=== PATIENT | female | born 1970 | race Caucasian/White ===

== ENCOUNTER → 2020-09-22 11:37 | Outpatient (CLI) | payer OTHER, SELFPAY ==
--- NOTE | ~2020-09-22 | US_ITS ---
EXAMINATION: US pelvic complete DATE: 09/22/2020 12:07 INDICATION: Material, generalized abdominal pain Comparison:01/08/2011 TECHNIQUE: Multiple transabdominal and endovaginal sonographic images of the pelvis performed. FINDINGS: The uterus measures 9.2 x 3.5 x 6.1 cm. The endometrial complex measures 7 mm. The right ovary measures 3.8 x 3.2 x 2.3 cm and the left ovary measures 3.8 x 2.3 x 2.5 cm. There ar e small follicles in each ovary. Normal doppler signal in both ovaries. There is no free fluid in the pelvis. There are no abnormal masses seen on either side. IMPRESSION: 1. Unremarkable pelvic ultrasound. Reviewed, dictated and finalized at location B.
== END ==
PROVIDERS: PCP Family Medicine; Visit Provider Family Medicine
DX: R31.9 Hematuria, unspecified (principal)
CPT/HCPCS: 76856

== ENCOUNTER → 2020-09-24 08:07 | Outpatient (CLI) | payer OTHER, SELFPAY ==
--- NOTE | ~2020-09-24 | US_ITS ---
US abdomen complete EXAMINATION: US Abdomen Complete INDICATION: Hematuria. Foamy urine. PROCEDURE: Realtime High Resolution abdomen ultrasound. COMPARISON: No prior studies for comparison FINDINGS: There are gallstones. No gallbladder wall thickening or pericholecystic fluid. Common bile duct measures 3 mm. Liver echotexture within normal limits without focal mass. Pancreas within normal limits. Pancreati c tail is obscured by bowel gas. Spleen is unremarkeable. Renal echotexture is within normal limits bilaterally without hydronephrosis, contour deforming mass or renal stone. Right kidney measures 12 c m. Left kidney measures 11.3 cm. Visualized aspects of the aorta and IVC are within normal limits. Portal vein is patent. No sonograph ic Tobar's sign indicated by the technologist. IMPRESSION: 1: Cholelithiasis. Reviewed, dictated and finalized at location B. IMPRESSION: 1: Cholelithiasis.
== END ==
PROVIDERS: PCP Family Medicine; Visit Provider Family Medicine
DX: R31.9 Hematuria, unspecified (principal); K80.20 Calculus of gallbladder without cholecystitis without obstruction
CPT/HCPCS: 76700

== ENCOUNTER → 2020-10-09 09:26 | Outpatient (CLI) | payer OTHER, SELFPAY ==
--- NOTE | ~2020-10-09 | CT_ITS ---
EXAMINATION: CT abdomen pelvis wo/w con EXAM DATE: 10/09/2020 10:13 INDICATION: Microscopic hematuria. TECHNIQUE: Spiral CT of the abdomen and pelvis was performed without contrast. The patient was then injected with small bolus intravenous Omnipaque 350, followed by delay of approximately 10 minutes to allow collecting system to opacify. A post contrast scan abdomen and pelvis was performed during inj ection of remaining contrast. A total of 130 cc intravenous contrast was administered. The dose-cristofer th product (DLP) for this examination was 1680.54 mGy-cm. The exposure was tailored according to pat ient size (auto mA exposure control), and iterative reconstruction (ASIR) was used as additional dose reduction technique. There is no prior study for comparison. FINDINGS: There is no hydronephrosis or nephrolithiasis. The kidneys enhance symmetrically. There a re no suspicious renal lesions. The calyces and opacified portions of ureters are unremarkable, with out filling defects or focal suspicious strictures. Mid and distal aspects of both ureters were not o pacified at time of imaging. The bladder is unremarkable. The uterus is retroverted with IUD in expe cted position. The liver, spleen, adrenal glands and pancreas are unremarkable. Some punctate gallstones. Gallbladd er otherwise unremarkable. There is no retroperitoneal or pelvic lymphadenopathy. Small umbilical fat-containing hernia. There is mild scattered colonic diverticulosis. There is no adjacent inflammatory change to suggest diverticulitis. The stomach and small bowel are unremarkable. There is expected amount of colonic st ool. No free intraperitoneal gas. The heart is normal in size. There are no pericardial or pleur al effusions. The lung bases are unremarkable. There are no osteoblastic or osteolytic lesions iden tified. IMPRESSION: 1. No suspicious genitourinary findings. 2. Mild colonic diverticulosis. 3. Cholelithiasis. Reviewed, dictated and finalized at location A.
--- NOTE | ~2020-10-09 | XR_ITS ---
EXAMINATION: XR abdomen/kub 1V EXAM DATE: 10/09/2020 10:13 INDICATION: Microscopic hematuria. TECHNIQUE: Frontal projection of the upper abdomen, frontal projection lower abdomen/pelvis for inter pretation. Comparison is made to prior examination from 08/22/2015. FINDINGS: There is moderate amount of colonic stool and gas. No small bowel dilation, nonobstructiv e bowel gas pattern. There are no suspicious calcifications identified. There is no organomegaly suspected. There are mild bony degenerative changes. Lung bases unremarkable. There is IUD projecti ng over the central aspect of the pelvis. IMPRESSION: No suspicious calcifications identified. Reviewed, dictated and finalized at location A.
[2020-10-09 09:52] LABS: Estimated Glomerular Filt Rate > 60
== END ==
PROVIDERS: PCP Family Medicine; Visit Provider Urology
DX: R31.29 Other microscopic hematuria (principal)
CPT/HCPCS: 74018; 74178; Q9967

== ENCOUNTER 2020-11-05 14:24 | Observation (INO) | payer OTHER, SELFPAY ==
--- NOTE | ~2020-11-05 | US_ITS ---
EXAMINATION: US pelvic complete w TV EXAM DATE: 11/05/2020 17:56 INDICATION: Low pelvic pain, fever. Lightheadedness. IUD. TECHNIQUE: Pelvic transabdominal and transvaginal sonogram was performed. There are multiple graysca le and Doppler images available for interpretation. Comparison is made to prior examination from 02/22. FINDINGS: Uterus measures 9.8 x 5.1 x 4.6 cm, is retroverted and morphologically normal. Artifact fr om IUD centrally located within the endometrium. Endometrial stripe measures a few millimeters, tania l. There are multiple nabothian cysts as identified previously. There is no free pelvic fluid. Right adnexa: The ovary measures 4.4 x 2.7 x 2.3 cm and is morphologically normal with the dominant f ollicle. Ovarian vascular flow confirmed. Left adnexa: The ovary measures 2.8 x 1.5 x 1.5 cm and is morphologically normal. Ovarian vascular fl ow confirmed. IMPRESSION: 1. Unremarkable pelvic ultrasound exam. 2. IUD in position. Reviewed, dictated and finalized at location A.
--- NOTE | ~2020-11-05 | CT_ITS ---
EXAMINATION: CT abdomen pelvis w con EXAM DATE: 11/05/2020 16:38 INDICATION: LLQ/suprapubic pain . Symptoms since this morning. TECHNIQUE: Spiral CT of the abdomen and pelvis was performed following intravenous injection of 100 m L Omnipaque 350. Axial, coronal and sagittal images of the abdomen and pelvis were reviewed. The do se-length product (DLP) for this examination was 705.00 mGy-cm. The exposure was tailored according to patient size (auto mA exposure control), and iterative reconstruction (ASIR) was used as additiona l dose reduction technique. Comparison is made to prior examination from 10/09/2020. FINDINGS: The liver, spleen, adrenal glands and pancreas are unremarkable. Several punctate gallston es. Normal spleen size. Portal and splenic veins are patent. Kidneys enhance symmetrically. There is no hydronephrosis. The uterus is retroverted and morphologically normal. IUD is in position. Th e bladder is unremarkable. There is no retroperitoneal or pelvic lymphadenopathy. Small umbilical fat-containing hernia. The appendix is normal. The stomach and small bowel are unremarkable. There is expected amount of c olonic stool. No free intraperitoneal gas. The heart is normal in size. There are no pericardial or pleural effusions. The lung bases are unremarkable. There are no osteoblastic or osteolytic les ions identified. IMPRESSION: 1. No acute intra-abdominal findings. Reviewed, dictated and finalized at location A.
[2020-11-05 14:32] VITALS: BP 104/68; PULSE 121; RESP 16; TEMP 37.5; O2SAT 99
[2020-11-05 14:49] LABS: Basophils Percent Auto 0.2 % (0.2-1.2); Hematocrit 40.2 % (37.0-47.0); Hemoglobin 13.9 g/dL (12.0-15.0); Immature Granulocyte Absolute 0.17 K/mm3 (0.00-0.031); Immature Granulocyte Percent A 0.9 % (0-0.5); Lymphocytes Absolute Auto 0.62 K/mm3 (0.9-3.2); Lymphocytes Percent Auto 3.2 % (18.3-44.2); Mean Corpuscular HGB Conc 34.6 g/dl (32-36); Mean Corpuscular Hemoglobin 31.3 pg (26-34); Mean Corpuscular Volume 90.5 fl (80-100); Mean Platelet Volume 9.7 fl (7.4-10.4); Monocytes Absolute Auto 1.2 K/mm3 (0.1-0.6); Monocytes Percent Auto 6.3 % (2.6-8.5); Neutrophils Absolute Auto 17.3 K/mm3 (1.3-6.7); Neutrophils Percent Auto 89.4 % (45.5-73.1); Platelet Count Result 244 k/mm3 (150-375); Red Blood Count 4.44 M/mm3 (4.2-5.4); Red Cell Distribution Width 12.2 % (11.5-14.5); White Blood Count 19.4 K/mm3 (4.5-10.0)
[2020-11-05 15:00] LABS: Alanine Aminotransferase 14 U/L (4-35); Albumin Level 3.6 g/dL (3.5-5.1); Alkaline Phosphatase 50 U/L (38-126); Anion Gap 6 mmol/L (8-16); Aspartate Amino Transferase 23 U/L (14-36); Bilirubin,Total 0.6 mg/dL (0.2-1.3); Blood Urea Nitrogen 10 mg/dL (7-17); Calcium 9.6 mg/dL (8.4-10.2); Carbon Dioxide 24 mmol/L (22-30); Chloride 105 mmol/L (98-107); Estimated CRCL calculation 75 ml/min; Estimated Glomerular Filt Rate > 60; Glucose 110 mg/dL (65-105); Lipase 61 U/L (23-300); Potassium 3.6 mmol/L (3.4-5.0); Sodium 135 mmol/L (137-145)
[2020-11-05] MEDS: MORPHINE SULFATE (*CRX) 4 MG/ML INJ IV PUSH ×2 (15:01→19:44)
--- NOTE | 2020-11-05 15:28 | PC.NURSE ---
patient aware that a urine specimen is needed in order to do ct. patient refuses straight cath. states will not be able to urinate until she gets water to drink. explained need for NPO status
[2020-11-05] MEDS: SODIUM CHLORIDE 0.9% IV 1,000 ML 999 ML IV CONT (15:53)
[2020-11-05 16:05] LABS: Add Urine Microscopic? YES; Appearance Urine Cloudy (Clear); Bacteria Urine Trace /hpf; Bilirubin Urine Negative (Negative); Blood Urine 2+ (Negative); Color Urine Amber (Yellow); Glucose Urine UA Negative (Negative); Ketones Urine 2+ mg/dL (Negative); Leukocyte Esterase Ur Negative LEU/UL (Negative); Mucus Urine Heavy /lpf; Nitrate Urine Negative (Negative); Protein Urine 3+ mg/dL (Negative); RBC Urine 21-50 /hpf (0-2); Squamous Epithelial Cell Urine Occasional /hpf (Few); Urobilinogen Urine Negative mg/dL (<2.0)
--- NOTE | 2020-11-05 16:31 | ED.GENADULT ---
HPI - General Adult General Chief complaint: Abdominal Pain Stated complaint: abd pain/fever Time Seen by Provider: 11/05/20 14:45 History of Present Illness HPI narrative: Patient is a 50-year-old female who presents ER with lower abdominal pain. Onset this morning and goes into her left side. It is a pressure. No nausea or vomiting but she has had fever with this. Denies urinary frequency urgency or hematuria. No history of diverticulitis or kidney stones. She had an unremarkable outpatient CT scan and outpatient pelvic ultrasound in the last 2 months. These imaging studies were related to a increase in the protein in her urine as well as some nonspecific abdominal pain that she has been suffering from. This is a first time she had a fever associated with her abdominal discomfort. Related Data Allergies Allergy/AdvReac Type Severity Reaction Status Date / Time Cephalosporins Allergy Severe hives Verified 11/05/20 21:07 guaifenesin Allergy Severe Hives / Verified 11/05/20 21:07 Red Face cephalexin Allergy Unknown hives Verified 11/05/20 21:07 Penicillins Allergy Unknown hives Verified 11/05/20 21:07 Sulfa (Sulfonamide Allergy Unknown hives and Verified 11/05/20 21:07 Antibiotics) hallucinations lidocaine AdvReac Unknown light Verified 11/05/20 21:07 headed ciprofloxacin AdvReac Rash Verified 11/05/20 21:07 vancomycin AdvReac Rash Verified 11/05/20 21:07 Review of Systems Review of Systems: All systems reviewed & are unremarkable except as noted in HPI and below Constitutional: Constitutional: Reports chills, Reports fever(s) and Denies weakness ENT: Denies nasal congestion and Denies sore throat Cardiovascular: Cardiovascular: Denies chest pain and Denies radiating jaw, neck or arm pain Respiratory: Respiratory: Denies chest congestion, Denies cough and Denies dyspnea Gastrointestinal: Gastrointestinal: Reports abdominal pain, Denies diarrhea, Denies nausea and Denies vomiting Genitourinary: Genitourinary: Denies nocturia, Denies dysuria and Denies flank pain PMF Past Medical History Medical History (Updated 11/05/20 @ 23:15 by Morales Johnson MD) Proteinuria Family History Family History Mother Patient's mother is in good health Father Patient's father is in good health Sibling Patient's sister is in good health Patient's brother is in good health Social History Social History (Updated 10/16/20 @ 15:42 by Shelly Cruz) Social History: Smoking status: Never smoker Tobacco type: cigarettes Second hand tobacco smoke exposure: No Smoking end date: 06/27/91 Alcohol intake: current Drinks per week: 1 Substance use: never Substance use type: does not use Gender identity (if verbalized by the patient): Female Sexual Orientation (if Verbalized by the Patient): Straight or Heterosexual Spiritual care concerns: No Exam Narrative: Exam Narrative: GENERAL: Uncomfortable-appearing, well-nourished, and in no acute distress. HEAD: Normocephalic, atraumatic. ENT: Mucous membranes moist. CHEST: Clear to auscultation. No respiratory distress. HEART: Regular rate and rhythm. Normal peripheral pulses. ABDOMEN: Soft, mild suprapubic discomfort without guarding, nondistended, normal active bowel sounds. Pelvic: Normal external genitalia, small amount of what appears to be physiologic discharge, no vaginal bleeding, normal-appearing cervix, no CMT. EXTREMITIES: Normal range of motion. No edema. SKIN: Warm, dry, no rash. NEURO: Alert and oriented x3. Course Course Emergency Course: Patient informed of results. Will admit for observation with IV antibiotics. Patient with fever and significantly elevated white count with abdominal pain. Unknown source. Possible UTI. Patient was started on ciprofloxacin but had a skin reaction. Became red and itchy. This was discontinued and she was started on ertapenem
[2020-11-05] MEDS: CIPROFLOXACIN 400 MG/D5W 200ML 200 ML 200 MG IVPB (19:17)
--- NOTE | 2020-11-05 19:37 | PC.NURSE ---
RN called to room for pt reaction to abx. Pt has itching and redness to hand where Cipro is infusing. Infusion stopped, approx 42ml infused at this time. Dr baldwin notified.
[2020-11-05] MEDS: ERTAPENEM 1 GM/NS 50 ML 1 GM/50 ML BAG IVPB (19:44)
[2020-11-05] MEDS: LACTATED RINGERS 1,000 ML 125 ML IV CONT (19:44)
[2020-11-05 20:23] VITALS: BP 97/64; PULSE 89; RESP 18; O2SAT 98
[2020-11-05 20:59] VITALS: BP 103/62; PULSE 79; RESP 20; TEMP 36.3; O2SAT 98
--- NOTE | 2020-11-05 20:59 | ADMGEN ---
This patient, Roxy Mattson Meng, was admitted to [facility] Surg Room 311-01. Patient/family oriented to hospital policies and general routines including ID bracelet, bed and alarms, visiting hours, pain management, procedures, bathroom and other care routines, personal items, smoking policy, room service/diet, and visiting hours. Information on how to activate the Rapid Response Team has been discussed. Patient/Family are encouraged to report perceived risks to care and to ask questions if they do not understand what they are told or what they should do.
--- NOTE | 2020-11-05 21:35 | PM.IMHP ---
H&P: HPI History of Present Illness Date/Time: 11/05/20 21:35 Chief Complaint: Pelvic cramps Narrative: This is a 50-year-old female with known significant past medical history patient presented to the emergency room due to pelvic pain the patient has had some workup done in the outpatient setting she recently had some workup done by urology upon finding hematuria microscopic. Patient denies any vaginal discharge no nausea no vomiting no diarrhea pain is localized to the pelvic area with radiation down to the perineum area pain was acute onset. She has been in her usual state of health prior to these she had been diagnosed with delayed colonic transit and constipation. No weight loss or weight gain no abnormal bleeding. Preliminary workup was nonrevealing upset for isolated leukocytosis on a complete blood count. At the time of my visit patient denied any complaints. A CT of abdomen and pelvis and pelvic ultrasound did not show any acute findings. A urinalysis was significant for RBCs. Review of Systems Review of Systems: All systems reviewed & are unremarkable except as noted in HPI and below Constitutional: Constitutional: Reports chills, Reports fever(s) and Denies weakness ENT: Denies nasal congestion and Denies sore throat Cardiovascular: Cardiovascular: Denies chest pain, Denies radiating jaw, neck or arm pain and Denies dyspnea Respiratory: Respiratory: Denies chest congestion, Denies cough and Denies dyspnea Gastrointestinal: Gastrointestinal: Reports abdominal pain, Denies diarrhea, Denies nausea and Denies vomiting Genitourinary: Genitourinary: Denies nocturia, Denies dysuria and Denies flank pain Neurologic: Denies weakness Endocrine: Endocrine: Denies change in body appearance, Denies cold intolerance, Denies excessive sweating, Denies fatigue, Denies heat intolerance and Denies polyuria Hematologic/Lymphatic: Hematologic/Lymphatic: Reports no additional hematologic/lymphatic complaints Allergic/Immunologic: Allergic/Immunologic: Reports no additional allergic/immunologic complaints [facility] Past Medical History Medical History (Updated 11/05/20 @ 22:38 by Vimal King MD) Proteinuria Family History Family History Mother Patient's mother is in good health Father Patient's father is in good health Sibling Patient's sister is in good health Patient's brother is in good health Social History Social History (Updated 10/16/20 @ 15:42 by Shelly Cruz) Social History: Smoking status: Never smoker Tobacco type: cigarettes Second hand tobacco smoke exposure: No Smoking end date: 06/27/91 Alcohol intake: current Drinks per week: 1 Substance use: never Substance use type: does not use Gender identity (if verbalized by the patient): Female Sexual Orientation (if Verbalized by the Patient): Straight or Heterosexual Spiritual care concerns: No Meds Home Medications and Allergies Allergies Allergy/AdvReac Type Severity Reaction Status Date / Time Cephalosporins Allergy Severe hives Verified 11/05/20 21:07 guaifenesin Allergy Severe Hives / Verified 11/05/20 21:07 Red Face cephalexin Allergy Unknown hives Verified 11/05/20 21:07 Penicillins Allergy Unknown hives Verified 11/05/20 21:07 Sulfa (Sulfonamide Allergy Unknown hives and Verified 11/05/20 21:07 Antibiotics) hallucinations lidocaine AdvReac Unknown light Verified 11/05/20 21:07 headed ciprofloxacin AdvReac Rash Verified 11/05/20 21:07 vancomycin AdvReac Rash Verified 11/05/20 21:07 Vital Signs Vital Signs - 24 hr 11/05/20 14:32 11/05/20 20:23 11/05/20 20:59 Temperature 99.5 F 97.4 F L Pulse Rate 121 H 89 79 Respiratory Rate 16 18 20 Blood Pressure 104/68 97/64 L 103/62 Pulse Oximetry 99 98 98 Exam Narrative: Exam Narrative: Patient is laying in gurney in no acute distress Const: General: comfortable, no acute dist
[2020-11-05 22:00] VITALS: BP 104/63; PULSE 82; RESP 20; TEMP 36.6; O2SAT 100
[2020-11-06] MEDS: HYDROcodone/acetaminophen (*CRX) 5-325 MG TABLET 1 TAB PO ×3 (03:43→18:32)
[2020-11-06] MEDS: LACTATED RINGERS 1,000 ML 125 ML IV CONT ×3 (03:44→20:11)
[2020-11-06 06:00] VITALS: BP 99/57; PULSE 71; RESP 20; TEMP 36.3; O2SAT 99
[2020-11-06 06:22] LABS: Basophils Absolute Auto 0.1 K/mm3 (0.0-0.1); Basophils Percent Auto 0.3 % (0.2-1.2); Eosinophils Absolute Auto 0.1 K/mm3 (0-0.3); Eosinophils Percent Auto 0.5 % (0-4.4); Hematocrit 32.9 % (37.0-47.0); Hemoglobin 11.1 g/dL (12.0-15.0); Immature Granulocyte Percent A 0.6 % (0-0.5); Lymphocytes Absolute Auto 1.91 K/mm3 (0.9-3.2); Lymphocytes Percent Auto 12.1 % (18.3-44.2); Mean Corpuscular HGB Conc 33.7 g/dl (32-36); Mean Corpuscular Hemoglobin 31.4 pg (26-34); Mean Corpuscular Volume 92.9 fl (80-100); Monocytes Absolute Auto 1.2 K/mm3 (0.1-0.6); Monocytes Percent Auto 7.6 % (2.6-8.5); Neutrophils Absolute Auto 12.5 K/mm3 (1.3-6.7); Neutrophils Percent Auto 78.9 % (45.5-73.1); Platelet Count Result 200 k/mm3 (150-375); Red Blood Count 3.54 M/mm3 (4.2-5.4); Red Cell Distribution Width 12.4 % (11.5-14.5); White Blood Count 15.8 K/mm3 (4.5-10.0)
[2020-11-06 06:30] LABS: Anion Gap 0 mmol/L (8-16); Blood Urea Nitrogen 9 mg/dL (7-17); Calcium 8.1 mg/dL (8.4-10.2); Carbon Dioxide 29 mmol/L (22-30); Chloride 105 mmol/L (98-107); Estimated CRCL calculation 76 ml/min; Estimated Glomerular Filt Rate > 60; Glucose 99 mg/dL (65-105); Potassium 3.7 mmol/L (3.4-5.0); Sodium 134 mmol/L (137-145)
[2020-11-06 09:12] VITALS: O2SAT 99
[2020-11-06 14:00] VITALS: BP 120/85; PULSE 63; RESP 16; TEMP 36.2; O2SAT 99
--- NOTE | 2020-11-06 16:45 | PM.IMPN ---
Progress Note: A&P Assessment and Plan (1) Pelvic pain: Code(s): R10.2 - Pelvic and perineal pain Status: Acute Assessment and Plan: Will place on observation Patient has had extensive workup done in the outpatient setting by Urology Will obtain a consult with Paint Line Supervisor CT ABDOMINAL PELVIS REVIEWED GYNECOLOGICAL ULTRASOUND REVIEWED SUPPORTIVE CARE 11/06/20 16:45 Patient is a 50-year-old female with history recurrent pelvic pain patient has been seen by heavy duty truck mechanic and recently was seen by urologist and had a straight cath, since then patient complains of dysuria and emergency did her urine showed leukourea and suspicious for UTI patient is being treated with Rocephin will follow-up on culture and sensitivity, and also had pelvic ultrasound is essentially normal, consulted Gynecology further evaluation and management will continue to monitor and further recommendation to follow (2) Leukocytosis: Code(s): D72.829 - Elevated white blood cell count, unspecified Status: Acute Assessment and Plan: NO APPARENT SOURCE OF INFECTION EMPIRIC ANTIBIOTICS AWAIT CULTURES REPEAT LABS IN THE MORNING (3) Hematuria: Code(s): R31.9 - Hematuria, unspecified Status: Acute Assessment and Plan: PATIENT STATES THAT SHE HAS HAD EXTENSIVE WORKUP IN THE OUTPATIENT SETTING BY UROLOGY FOLLOW-UP IN THE OUTPATIENT SETTING (4) Foamy urine: Code(s): R82.998 - Other abnormal findings in urine Status: Acute Assessment and Plan: WORKUP IN THE OUTPATIENT SETTING DONE FOLLOW-UP IN OUTPATIENT SETTING Subjective Date/time seen: 11/06/20 16:45 Patient is a 50-year-old female with history recurrent pelvic pain patient has been seen by heavy duty truck mechanic and recently was seen by urologist and had a straight cath, since then patient complains of dysuria and emergency did her urine showed leukourea and suspicious for UTI patient is being treated with Rocephin will follow-up on culture and sensitivity, and also had pelvic ultrasound is essentially normal, consulted Gynecology further evaluation and management will continue to monitor and further recommendation to follow Review of Systems Review of Systems: All systems reviewed & are unremarkable except as noted in HPI and below Exam Narrative: Exam Narrative: Patient is comfortable, NAD HEENT: eyes are clear and none icteric LUNGS: Normal respiratory effort ABD patient describes lower abdomen pelvic Lower extremities: no edema SKIN: nonjaundiced Neuro: grossly intact. Objective Data Vital Signs Vital Signs: Vital Signs - 24 hr 11/05/20 20:23 11/05/20 20:59 11/05/20 22:00 Temperature 97.4 F L 97.8 F Pulse Rate 89 79 82 Respiratory Rate 18 20 20 Blood Pressure 97/64 L 103/62 104/63 Pulse Oximetry 98 98 100 11/06/20 06:00 11/06/20 09:12 11/06/20 14:00 Temperature 97.4 F L 97.2 F L Pulse Rate 71 63 Respiratory Rate 20 16 Blood Pressure 99/57 L 120/85 Pulse Oximetry 99 99 99 Intake/Output Intake/Output: Intake & Output 11/03/20 11/04/20 11/05/20 11/06/20 23:59 23:59 23:59 23:59 Intake Total 1042 2680 Balance 1042 2680 Meds/Results Medications: Active Medications Generic Name Dose Route Start Last Admin Trade Name Freq PRN Reason Stop Dose Admin Acetaminophen 650 mg 11/05/20 19:01 Acetaminophen 325 Mg Tablet PO Q4H PRN Mild Pain (1-3) or Fever Hydrocodone Bitart/Acetaminophen 1 tab 11/05/20 19:01 11/06/20 12:42 Hydrocodone/Acetaminophen (*Crx) 5-325 Mg Tablet PO 1 tab Q4H PRN Administration Pain Rated 4-6 Lactated Ringer's 1,000 mls @ 125 mls/hr 11/05/20 19:05 11/06/20 12:05 Lr - Lactated Ringers Iv IV CONT 125 mls/hr .Q8H JAMILAH Administration Ertapenem 1 gm in 50 mls @ 100 mls/hr 11/06/20 19:00 Invanz 1 Gm/Ns 50 Ml IVPB Q24H JAMILAH Morphine Sulfate 4 mg 11/05/20 19:01 11/05/20 19:44 Morphine Sulfate (*Crx) 4 Mg/Ml Inj IV PUSH 4 mg Q2H PRN
[2020-11-06] MEDS: ERTAPENEM 1 GM/NS 50 ML 1 GM/50 ML BAG IVPB (17:11)
[2020-11-06 22:00] VITALS: BP 109/70; PULSE 61; RESP 18; TEMP 36.4; O2SAT 99
[2020-11-07] MEDS: HYDROcodone/acetaminophen (*CRX) 5-325 MG TABLET 1 TAB PO ×3 (04:48→13:31)
[2020-11-07] MEDS: LACTATED RINGERS 1,000 ML 125 ML IV CONT ×2 (04:49→12:45)
[2020-11-07 06:00] VITALS: BP 113/70; PULSE 70; RESP 20; TEMP 36.7; O2SAT 96
--- NOTE | 2020-11-07 09:32 | WPDCN ---
Assessment and Plan Assessment and plan (1) Pelvic pain: Code(s): R10.2 - Pelvic and perineal pain Status: Acute Assessment and Plan: most likely consistent with UTI. continue with antibiotics. not consistent with PID or adnexal pains. (2) UTI (urinary tract infection): Code(s): N39.0 - Urinary tract infection, site not specified Status: Acute (3) History of laparoscopy: Code(s): Z98.890 - Other specified postprocedural states Status: Acute HPI Data of Consult Date/Time: 11/07/20 09:32 Patient seen 11/06/20 @ 1245 pm with present Requesting Physician: Lawson Velazquez MD Primary Care Provider: Michelle Mcqueen MD Consult Narrative Narrative: Roxy Mattson Meng is a 50 year old female A1 presented to ER with complaints of abdominal pain. Patient reports pain presented as almost like labor pains coming and going radiating from umbilicus to pelvis. Patient reports felt nauseated and also reported a fever of 102 at home. no fevers since admission. Patient denies any bleeding vaginally. Patient does report some hematuria that she has had and had been seen by urology Patient is using Liletta IUD for control has had two prior mirena and this one she has had for two years now and denies any complications with it. Patient is present. TOBACCO DIPPER care with a DR Parker. Review of Systems Constitutional: Constitutional: Reports excessive sweating and Reports fever(s) ENT: Reports system reviewed and no additional complaints, except as documented Cardiovascular: Cardiovascular: Reports no additional cardiovascular complaints Respiratory: Respiratory: Reports no additional respiratory complaints Gastrointestinal: Gastrointestinal: Reports no additional gastrointestinal complaints Genitourinary: Genitourinary: Reports hematuria Integumentary/Breasts: Skin/Breast: Reports system reviewed and no additional complaints, except as docu PMFSH Past Medical History Medical History (Updated 11/07/20 @ 14:07 by Ramirez Esteban MD) History of PCOS Proteinuria Surgical History Surgical History (Updated 11/07/20 @ 14:06 by Ramirez Esteban MD) History of laparoscopy Family History Family History Mother Patient's mother is in good health Father Patient's father is in good health Sibling Patient's sister is in good health Patient's brother is in good health Social History Social History Social History: Smoking status: Never smoker Tobacco type: cigarettes Second hand tobacco smoke exposure: No Smoking end date: 06/27/91 Alcohol intake: current Drinks per week: 1 Substance use: never Substance use type: does not use Gender identity (if verbalized by the patient): Female Sexual Orientation (if Verbalized by the Patient): Straight or Heterosexual Spiritual care concerns: No Meds Home Medications and Allergies Home Medications Medication Instructions Recorded Confirmed Type No Home Medications 11/07/20 11/07/20 History Allergies Allergy/AdvReac Type Severity Reaction Status Date / Time Cephalosporins Allergy Severe hives Verified 11/05/20 21:07 guaifenesin Allergy Severe Hives / Verified 11/05/20 21:07 Red Face cephalexin Allergy Unknown hives Verified 11/05/20 21:07 Penicillins Allergy Unknown hives Verified 11/05/20 21:07 Sulfa (Sulfonamide Allergy Unknown hives and Verified 11/05/20 21:07 Antibiotics) hallucinations lidocaine AdvReac Unknown light Verified 11/05/20 21:07 headed ciprofloxacin AdvReac Rash Verified 11/05/20 21:07 vancomycin AdvReac Rash Verified 11/05/20 21:07 Vital Signs Vital Signs - 24 hr 11/06/20 14:00 11/06/20 22:00 11/07/20 06:00 Temperature 36.2 C L 36.4 C 36.7 C Pulse Rate 63 61 70 Respiratory Rate 16 18 20 Blood Pressure 120/85 109/7
[2020-11-07 09:44] LABS: Hematocrit 33.9 % (37.0-47.0); Hemoglobin 11.3 g/dL (12.0-15.0); Mean Corpuscular HGB Conc 33.3 g/dl (32-36); Mean Corpuscular Hemoglobin 30.4 pg (26-34); Mean Corpuscular Volume 91.1 fl (80-100); Mean Platelet Volume 9.8 fl (7.4-10.4); Platelet Count Result 207 k/mm3 (150-375); Red Blood Count 3.72 M/mm3 (4.2-5.4); Red Cell Distribution Width 12.7 % (11.5-14.5); White Blood Count 7.4 K/mm3 (4.5-10.0)
[2020-11-07 09:56] LABS: Anion Gap -1 mmol/L (8-16); Blood Urea Nitrogen 6 mg/dL (7-17); Calcium 8.3 mg/dL (8.4-10.2); Carbon Dioxide 31 mmol/L (22-30); Chloride 108 mmol/L (98-107); Estimated CRCL calculation 85 ml/min; Estimated Glomerular Filt Rate > 60; Glucose 110 mg/dL (65-105); Potassium 3.8 mmol/L (3.4-5.0); Sodium 138 mmol/L (137-145)
--- NOTE | 2020-11-07 13:37 | PM.DS ---
DS: Admitting Diagnosis Admitting Diagnosis Admitting Diagnosis: Chief Complaint: Pelvic cramps DS: Discharge Diagnosis Discharge Diagnosis (1) Intractable lower abdominal pain: Code(s): R10.30 - Lower abdominal pain, unspecified Status: Acute (2) Pelvic pain: Code(s): R10.2 - Pelvic and perineal pain Status: Acute Assessment and Plan: Will place on observation Patient has had extensive workup done in the outpatient setting by Urology Will obtain a consult with [employer] [facility] ABDOMINAL PELVIS REVIEWED GYNECOLOGICAL ULTRASOUND REVIEWED SUPPORTIVE CARE 11/06/20 16:45 Patient is a 50-year-old female with history recurrent pelvic pain patient has been seen by physician gynecologist and recently was seen by urologist and had a straight cath, since then patient complains of dysuria and emergency did her urine showed leukourea and suspicious for UTI patient is being treated with Rocephin will follow-up on culture and sensitivity, and also had pelvic ultrasound is essentially normal, consulted Gynecology further evaluation and management will continue to monitor and further recommendation to follow (3) Leukocytosis: Code(s): D72.829 - Elevated white blood cell count, unspecified Status: Acute Assessment and Plan: NO APPARENT SOURCE OF INFECTION EMPIRIC ANTIBIOTICS AWAIT CULTURES REPEAT LABS IN THE MORNING (4) Hematuria: Code(s): R31.9 - Hematuria, unspecified Status: Acute Assessment and Plan: PATIENT STATES THAT SHE HAS HAD EXTENSIVE WORKUP IN THE OUTPATIENT SETTING BY UROLOGY FOLLOW-UP IN THE OUTPATIENT SETTING (5) Foamy urine: Code(s): R82.998 - Other abnormal findings in urine Status: Acute Assessment and Plan: WORKUP IN THE OUTPATIENT SETTING DONE FOLLOW-UP IN OUTPATIENT SETTING DS: Summary Hospital Course Reason for hospitalization: Chief Complaint: Pelvic cramps Narrative: This is a 50-year-old female with known significant past medical history patient presented to the emergency room due to pelvic pain the patient has had some workup done in the outpatient setting she recently had some workup done by urology upon finding hematuria microscopic. Patient denies any vaginal discharge no nausea no vomiting no diarrhea pain is localized to the pelvic area with radiation down to the perineum area pain was acute onset. She has been in her usual state of health prior to these she had been diagnosed with delayed colonic transit and constipation. No weight loss or weight gain no abnormal bleeding. Preliminary workup was nonrevealing upset for isolated leukocytosis on a complete blood count. At the time of my visit patient denied any complaints. A CT of abdomen and pelvis and pelvic ultrasound did not show any acute findings. A urinalysis was significant for RBCs. Hospital Course: 11/06/20 16:45 Patient is a 50-year-old female with history recurrent pelvic pain patient has been seen by physician gynecologist and recently was seen by urologist and had a straight cath, since then patient complains of dysuria and emergency did her urine showed leukourea and suspicious for UTI patient is being treated with Rocephin will follow-up on culture and sensitivity, and also had pelvic ultrasound is essentially normal, consulted Gynecology further evaluation and management will continue to monitor and further recommendation to follow on 11/07 today patient is clinically stable, urine and vaginal swab culture is growing group B Streptococcus, will discharge the patient home on clindamycin 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
--- NOTE | 2020-11-07 14:13 | PM.GYNPNOP ---
BALANCE SHEET ANALYST - A/P Assessment and plan (1) UTI (urinary tract infection): Code(s): N39.0 - Urinary tract infection, site not specified Status: Acute Assessment and Plan: most likely UTI with bladder pain on exam. (2) Pelvic pain: Code(s): R10.2 - Pelvic and perineal pain Status: Acute Assessment and Plan: Recommend follow with capsule maker for pap exam. Otherwise IUD okay (3) Leukocytosis: Code(s): D72.829 - Elevated white blood cell count, unspecified Status: Acute Assessment and Plan: improved with antibiotics Time Spent With Patient Time: Total time spent is greater than 50% in coordination of care (as documented) at patient's floor/unit and/or counseling patient: Time with patient: 15 - 25 minutes BALANCE SHEET ANALYST- PN:Sarita Post-Op Subjective Date/time seen: 11/07/20 14:13( seen @ 0750) Patinent report doing okay required some pain medicine overnight but nothing since then. Urinating okay no pain with ambulation Exam GI: Other: abdomen soft nontender on exam this am BALANCE SHEET ANALYST - PN: Obj Data Vital Signs Vital Signs: Vital Signs - 24 hr 11/06/20 22:00 11/07/20 06:00 Temperature 36.4 C 36.7 C Pulse Rate 61 70 Respiratory Rate 18 20 Blood Pressure 109/70 113/70 Pulse Oximetry 99 96 Intake/Output Intake/Output: Intake & Output 11/04/20 11/05/20 11/06/20 11/07/20 23:59 23:59 23:59 23:59 Intake Total 1042 5790 2550 Balance 1042 5790 2550 Meds/Results Medications: Active Medications Generic Name Dose Route Start Last Admin Trade Name Freq PRN Reason Stop Dose Admin Acetaminophen 650 mg 11/05/20 19:01 Acetaminophen 325 Mg Tablet PO Q4H PRN Mild Pain (1-3) or Fever Hydrocodone Bitart/Acetaminophen 1 tab 11/05/20 19:01 11/07/20 13:31 Hydrocodone/Acetaminophen (*Crx) 5-325 Mg Tablet PO 1 tab Q4H PRN Administration Pain Rated 4-6 Lactated Ringer's 1,000 mls @ 125 mls/hr 11/05/20 19:05 11/07/20 12:45 Lr - Lactated Ringers Iv IV CONT 125 mls/hr .Q8H JAMILAH Administration Ertapenem 1 gm in 50 mls @ 100 mls/hr 11/06/20 19:00 11/06/20 17:41 Invanz 1 Gm/Ns 50 Ml IVPB Infused Q24H JAMILAH Infusion Morphine Sulfate 4 mg 11/05/20 19:01 11/05/20 19:44 Morphine Sulfate (*Crx) 4 Mg/Ml Inj IV PUSH 4 mg Q2H PRN Administration Pain Rated 7-10 Polyethylene Glycol 17 gm 11/07/20 10:22 Polyethylene Glycol 3350 17 Gm Powd.Pack PO DAILY PRN Constipation Promethazine HCl 12.5 mg 11/05/20 19:01 Promethazine Hcl 25 Mg/Ml Ampul IV PUSH Q6H PRN Nausea Radiology Results: ITS Impressions Abdomen/Pelvis CT 11/05/20 16:43 IMPRESSION: 1. No acute intra-abdominal findings. Pelvic/Transvag US 11/05/20 17:58 IMPRESSION: 1. Unremarkable pelvic ultrasound exam. 2. IUD in position. Labs CBC & Chem 7: 11/07/20 09:29 11/07/20 09:29 Labs: Laboratory Results - last 24 hr 11/07/20 11/07/20 09:29 09:29 WBC 7.4 RBC 3.72 L Hgb 11.3 L Hct 33.9 L MCV 91.1 MCH 30.4 MCHC 33.3 RDW 12.7 Plt Count 207 MPV 9.8 Sodium 138 Potassium 3.8 Chloride 108 H Carbon Dioxide 31 H Anion Gap -1 L BUN 6 L Creatinine 0.80 Estim Creat Clear Calc 85 Estimated GFR > 60 Glucose 110 H Calcium 8.3 L urine culture GBS vaginal culture pending negative trichomonas
== END 2020-11-07 15:35 | disposition home or self-care (01) ==
LOC: ANHED 19:08 → ANH3MEDSUR 23:15
PROVIDERS: Emergency Medicine; Internal Medicine; Admitting Provider Internal Medicine; Emergency Provider Emergency Medicine; PCP Family Medicine; Visit Provider Family Medicine
DX: N39.0 Urinary tract infection, site not specified (principal); B95.5 Unspecified streptococcus as the cause of diseases classified elsewhere; R10.2 Pelvic and perineal pain; D72.829 Elevated white blood cell count, unspecified; R31.9 Hematuria, unspecified
CPT/HCPCS: 36415; 74177; 76830; 76856; 80048; 80053; 81001; 81025; 83690; 85025; 85027; 87070; 87077; 87086; 87088; 87491; 87591; 87808; 96360; 96361; 96365; 96375; 99285; A9270; G0378; J0744; J1335; J2270; J7030; J7120; Q9967

== ENCOUNTER 2020-12-15 12:28 | Outpatient (CLI) | payer OTHER, SELFPAY ==
[2020-12-15 12:49] LABS: Basophils Percent Auto 0.4 % (0.2-1.2); Eosinophils Absolute Auto 0.1 K/mm3 (0-0.3); Eosinophils Percent Auto 1.2 % (0-4.4); Hematocrit 43.1 % (37.0-47.0); Immature Granulocyte Absolute 0.02 K/mm3 (0.00-0.031); Immature Granulocyte Percent A 0.3 % (0-0.5); Lymphocytes Absolute Auto 1.19 K/mm3 (0.9-3.2); Lymphocytes Percent Auto 15.3 % (18.3-44.2); Mean Corpuscular HGB Conc 32.5 g/dl (32-36); Mean Corpuscular Hemoglobin 30.2 pg (26-34); Mean Corpuscular Volume 92.9 fl (80-100); Mean Platelet Volume 9.6 fl (7.4-10.4); Monocytes Absolute Auto 0.7 K/mm3 (0.1-0.6); Neutrophils Absolute Auto 5.7 K/mm3 (1.3-6.7); Neutrophils Percent Auto 73.8 % (45.5-73.1); Platelet Count Result 210 k/mm3 (150-375); Red Blood Count 4.64 M/mm3 (4.2-5.4); Red Cell Distribution Width 12.5 % (11.5-14.5); White Blood Count 7.8 K/mm3 (4.5-10.0)
[2020-12-15 12:59] LABS: Alanine Aminotransferase 17 U/L (4-35); Albumin Level 3.7 g/dL (3.5-5.1); Alkaline Phosphatase 52 U/L (38-126); Anion Gap 5 mmol/L (8-16); Aspartate Amino Transferase 26 U/L (14-36); Bilirubin,Total 0.5 mg/dL (0.2-1.3); Blood Urea Nitrogen 9 mg/dL (7-17); Calcium 8.6 mg/dL (8.4-10.2); Carbon Dioxide 27 mmol/L (22-30); Chloride 105 mmol/L (98-107); Estimated Glomerular Filt Rate > 60; Glucose 99 mg/dL (65-105); Potassium 3.6 mmol/L (3.4-5.0); Sodium 137 mmol/L (137-145)
== END 2020-12-15 12:29 | disposition home or self-care (01) ==
PROVIDERS: PCP Family Medicine; Visit Provider Physician Assistant
DX: R11.0 Nausea (principal); R50.9 Fever, unspecified; R10.30 Lower abdominal pain, unspecified
CPT/HCPCS: 36415; 80053; 85025

== ENCOUNTER 2020-12-23 11:51 | Outpatient (CLI) | payer OTHER, SELFPAY ==
[2020-12-23 12:23] LABS: Alanine Aminotransferase 19 U/L (4-35); Albumin Level 3.9 g/dL (3.5-5.1); Alkaline Phosphatase 43 U/L (38-126); Anion Gap 6 mmol/L (8-16); Aspartate Amino Transferase 31 U/L (14-36); Bilirubin,Total 0.5 mg/dL (0.2-1.3); Blood Urea Nitrogen 12 mg/dL (7-17); Calcium 9.1 mg/dL (8.4-10.2); Carbon Dioxide 26 mmol/L (22-30); Chloride 106 mmol/L (98-107); Estimated Glomerular Filt Rate > 60; Glucose 94 mg/dL (65-105); Potassium 4.3 mmol/L (3.4-5.0); Sodium 138 mmol/L (137-145)
[2020-12-23 13:16] LABS: Erythrocyte Sedimentation Rate 11 mm/hr (0-20)
[2020-12-25 21:19] LABS: CRP, High Sensitivity 0.7 mg/L (***)
== END 2020-12-23 11:52 | disposition home or self-care (01) ==
PROVIDERS: PCP Family Medicine; Visit Provider Family Medicine
DX: R53.83 Other fatigue (principal); R63.0 Anorexia; R14.0 Abdominal distension (gaseous); I10 Essential (primary) hypertension
CPT/HCPCS: 36415; 80053; 85652; 86141

== ENCOUNTER 2021-04-01 00:59 | Day surgery (SDC) | payer OTHER, SELFPAY ==
[2021-03-23 14:26] VITALS: BMI 25.5
--- NOTE | 2021-03-31 11:39 | PM.HPGS ---
History of Present Illness History of Present Illness Consent: Risks, benefits, and alternatives have been discussed and questions answered. Patient agrees to proceed with procedure. Chief complaint: Epigastric pain, weightloss Narrative: Roxy Mattson Meng is a 50 year old female with epigastric pain and 25 lb weight loss. She has also had a change in bowel habits becoming constipated. Now she is taking MiraLax her stools are very soft and thin. She uses MiraLax because it feels better when her system is empty, alleviating the nearly constant abdominal discomfort that she has. She had taken a course of Xifaxan for presumed SIBO without significant lasting benefit although she felt better when on it. Review of Systems Review of Systems: All systems reviewed & are unremarkable except as noted in HPI and below PMFSH Past Medical History Medical History Asthma History of PCOS Proteinuria Surgical History Surgical History History of laparoscopy Family History Family History Mother Patient's mother is in good health Father Patient's father is in good health Sibling Patient's sister is in good health Patient's brother is in good health Social History Social History Social History: Smoking packs per day: 1 Smoking cigarettes per day: 20.0 Years smoked: 2 Smoking pack-years: 2.00 Smoking status: Former smoker Tobacco type: cigarettes Second hand tobacco smoke exposure: No Smoking end date: 06/27/91 Alcohol intake: former Alcohol use details: None this year due to not feeling well. Substance use: never Substance use type: does not use Living arrangements: with family Gender identity (if verbalized by the patient): Female Sexual Orientation (if Verbalized by the Patient): Straight or Heterosexual Spiritual care concerns: No Meds Home Medications and Allergies Home Medications Medication Instructions Recorded Confirmed Type No Home Medications 02/22/21 04/01/21 History Allergies Allergy/AdvReac Type Severity Reaction Status Date / Time Cephalosporins Allergy Severe hives Verified 04/01/21 08:23 guaifenesin Allergy Severe Hives / Verified 04/01/21 08:23 Red Face cephalexin Allergy Unknown hives Verified 04/01/21 08:23 Penicillins Allergy Unknown hives Verified 04/01/21 08:23 Sulfa (Sulfonamide Allergy Unknown hives and Verified 04/01/21 08:23 Antibiotics) hallucinations ciprofloxacin AdvReac Mild Rash Verified 04/01/21 08:23 vancomycin AdvReac Mild Rash Verified 04/01/21 08:23 lidocaine AdvReac Unknown light Verified 04/01/21 08:23 headed Exam Const: General: alert Orientation/consciousness: patient oriented x3 Resp: Auscultation: clear to auscultation bilaterally Cardio: Rhythm: regular rhythm GI: GI Palp: Yes Soft to palpation and No Tenderness to palpation present (GI) Neuro: General: patient oriented x3 Assessment and Plan Assessment and plan (1) Weight loss: Code(s): R63.4 - Abnormal weight loss Status: Acute Assessment and Plan: EGD with possible biopsy or dilatation or cautery. (2) Change in bowel habits: Code(s): R19.4 - Change in bowel habit Status: Acute Assessment and Plan: Colonoscopy with possible biopsy or polypectomy or cautery or injection of substances.
--- NOTE | 2021-03-31 12:49 | WPDANESEPPF ---
Anes - Initial Pre Proc Eval Procedure: Operation Date: 04/01/21 09:00 Proposed Procedures p Esophagogastroduodenoscopy & Colonoscopy - Tony Hook MD Date/Time: 03/31/21 12:49 Surgeon: Tony Hook MD Pre Op Diagnosis: Epigastric pain, weightloss Patient Data Age: 50 Gender: F Height: 1.7 m Weight: 74 kg Allergies Allergy/AdvReac Type Severity Reaction Status Date / Time Cephalosporins Allergy Severe hives Verified 04/01/21 08:23 guaifenesin Allergy Severe Hives / Verified 04/01/21 08:23 Red Face cephalexin Allergy Unknown hives Verified 04/01/21 08:23 Penicillins Allergy Unknown hives Verified 04/01/21 08:23 Sulfa (Sulfonamide Allergy Unknown hives and Verified 04/01/21 08:23 Antibiotics) hallucinations ciprofloxacin AdvReac Mild Rash Verified 04/01/21 08:23 vancomycin AdvReac Mild Rash Verified 04/01/21 08:23 lidocaine AdvReac Unknown light Verified 04/01/21 08:23 headed Home Medications Medication Instructions Recorded Confirmed Type dicyclomine 10 mg PO TID #90 cap 04/01/21 Rx promethazine 25 mg tablet 25 mg PO BID PRN #60 tablet 04/03/21 Rx Patient hx anesthesia problems: none Family hx anesthesia problems: none Results Review: All pre-operative results and documents have been reviewed as part of the pre-operative evaluation. [facility] Past Medical History Medical History Asthma History of PCOS Proteinuria Surgical History Surgical History History of laparoscopy Family History Family History Mother Patient's mother is in good health Father Patient's father is in good health Sibling Patient's sister is in good health Patient's brother is in good health Social History Social History Social History: Smoking packs per day: 1 Smoking cigarettes per day: 20.0 Years smoked: 2 Smoking pack-years: 2.00 Smoking status: Former smoker Tobacco type: cigarettes Second hand tobacco smoke exposure: No Smoking end date: 06/27/91 Alcohol intake: former Alcohol use details: None this year due to not feeling well. Substance use: never Substance use type: does not use Living arrangements: with family Gender identity (if verbalized by the patient): Female Sexual Orientation (if Verbalized by the Patient): Straight or Heterosexual Spiritual care concerns: No Anes - Eval Final PreProcedure Day of Procedure 03/31/21 12:49 Patient weight: overweight Heart: regular rate and rhythm Lungs: clear to auscultation and normal air movement Airway: Mallampati scale class II Neurological: alert and oriented Last oral intake: >/= 8 hours ASA classification: II Emergent: no Anesthetic plan: proceed Anesthesia type and monitoring: general GIVS and standard monitoring Results Review: All pre-operative results and documents have been reviewed as part of the pre-operative evaluation. Informed Consent: The patient's anesthetic plan and its attendant risks and benefits were discussed with the patient/family/POA. Questions were solicited and answers provided to the satisfaction of the patient/family/POA.
[2021-04-01 08:24] VITALS: BP 104/78; PULSE 71; RESP 18; TEMP 36.4; O2SAT 100
[2021-04-01] MEDS: LACTATED RINGERS 1,000 ML 150 ML IV CONT (09:00)
[2021-04-01] MEDS: SIMETHICONE ORAL SUSPENSION 20 MG/0.3 ML 30 ML BOTTLE 0.6 ML IRRIGATION (09:19)
[2021-04-01 09:38] VITALS: BP 94/58; PULSE 77; RESP 19; O2SAT 100
[2021-04-01 09:48] VITALS: BP 88/54; PULSE 64; RESP 24; O2SAT 100
[2021-04-01 09:58] VITALS: BP 104/64; PULSE 54; RESP 24; O2SAT 98
== END 2021-04-01 10:19 | disposition home or self-care (01) ==
PROVIDERS: PCP Family Medicine; Visit Provider Internal Medicine Gastroenterology
PROC: 0DJ08ZZ Inspection of Upper Intestinal Tract, Via Natural or Artificial Opening Endoscopic (ICD-10-PCS; CPT 43235; principal; 2021-04-01 09:00)
DX: K21.00 Gastro-esophageal reflux disease with esophagitis, without bleeding (principal); K57.30 Diverticulosis of large intestine without perforation or abscess without bleeding; R19.4 Change in bowel habit; R63.4 Abnormal weight loss; J45.909 Unspecified asthma, uncomplicated; Z87.891 Personal history of nicotine dependence
CPT/HCPCS: 43239; 45378; 87081; 88305; J2704; J7120

== ENCOUNTER 2021-04-09 07:10 | Outpatient (RCR) | payer OTHER, SELFPAY | END 2021-07-08 23:59 | disposition home or self-care (01) | LOC: ANHVASCINF 07:10 | PROVIDERS: PCP Family Medicine; Visit Provider Family Medicine | DX: R94.7 Abnormal results of other endocrine function studies (principal) | CPT/HCPCS: 36415; 82533; 96372; J0834 ==

== ENCOUNTER → 2021-05-18 08:59 | Outpatient (CLI) | payer OTHER, SELFPAY ==
--- NOTE | ~2021-05-18 | US_ITS ---
EXAMINATION: US right upper quadrant DATE: 05/18/2021 09:17 INDICATION: Right upper quadrant abdominal pain. Constipation. Loose stool. TECHNIQUE: Multiple grayscale and Doppler ultrasound images of the abdomen were obtained. COMPARISON: CT abdomen and pelvis 11/05/2020 FINDINGS: The visualized portions of the head, body, and tail of the pancreas are normal. The liver i s normal without focal lesion. No liver surface nodularity. There is normal flow in main portal vein. The gallbladder is normal in size and contains gallstones. No gallbladder wall thickening or sonogra phic Tobar sign. The common duct is normal and measures 3 mm. IMPRESSION: 1. Cholelithiasis. No evidence of acute cholecystitis. Reviewed, dictated and finalized at location B. D NUTRITION DIRECTOR
== END ==
PROVIDERS: PCP Family Medicine; Visit Provider Internal Medicine Endocrinology, Diabetes & Metabolism
DX: K59.00 Constipation, unspecified (principal); R19.5 Other fecal abnormalities; K80.20 Calculus of gallbladder without cholecystitis without obstruction
CPT/HCPCS: 76705

== ENCOUNTER → 2021-05-29 13:25 | Outpatient (CLI) | payer OTHER, SELFPAY ==
--- NOTE | ~2021-05-29 | MR_ITS ---
EXAMINATION: MR brain/brain stem wo/w con DATE: 05/29/2021 14:25 INDICATION: Optic neuritis. Dizziness. TECHNIQUE: Magnetic resonance imaging (MRI) of the brain and brainstem was performed without and with 14 mL MultiHance intravenous contrast. Sequences included sagittal and axial T1-weighted FLAIR, axia l T1-weighted FSE, axial diffusion-weighted FS EPI, sagittal T2-weighted FLAIR, axial T2*-weighted GR E, axial T2-weighted FLAIR Propeller, and axial T2-weighted Propeller. Postcontrast sequences include d axial, coronal, and sagittal T1-weighted FSE. Apparent diffusion coefficient (ADC) maps were create d. COMPARISON: Brain MRI 09/22/2004 FINDINGS: There are greater than 10 total lesions of increased T2-weighted signal intensity in the br ain. Of these lesions, some are periventricular, some are juxtacortical, and none are infratentorial. None of the lesions enhance. There is no intracranial hemorrhage or acute ischemic infarct. The vent ricles are normal in size. There is mild mucosal thickening in the ethmoid sinuses. The mastoid air c ells are normal. IMPRESSION: 1. Mild cerebral white matter disease with worsening from 09/22/2004. The differential diagnosis inclu seema premature chronic small vessel ischemic disease (especially if the patient has cardiovascular ris k factors), demyelinating disease such as multiple sclerosis, drug abuse, vasculitis, or reactive ast rocytosis (gliosis) secondary to nonspecific etiology. Reviewed, dictated and finalized at location A. MENT IMAGING MANAGER IMPRESSION: 1. Mild cerebral white matter disease with worsening from 09/22/2004. The differ ential diagnosis includes premature chronic small vessel ischemic disease (len cially if the patient has cardiovascular risk factors), demyelinating disease s uch as multiple sclerosis, drug abuse, vasculitis, or reactive astrocytosis (gl iosis) secondary to nonspecific etiology.
[2021-05-29 13:59] LABS: Estimated Glomerular Filt Rate > 60
== END ==
PROVIDERS: PCP Family Medicine; Visit Provider Internal Medicine Endocrinology, Diabetes & Metabolism
DX: Z86.69 Personal history of other diseases of the nervous system and sense organs (principal); R93.0 Abnormal findings on diagnostic imaging of skull and head, not elsewhere classified
CPT/HCPCS: 70553; A9577

== ENCOUNTER → 2021-07-16 10:48 | Outpatient (CLI) | payer OTHER, SELFPAY ==
--- NOTE | ~2021-07-16 | US_ITS ---
EXAMINATION: US renal BI EXAM DATE: 07/16/2021 11:05 INDICATION: proteinuria TECHNIQUE: Multiple grayscale and Doppler images of the kidneys were obtained (by a technologist who performed the scan) and subsequently reviewed. Comparison is made to prior examination from 09/24/2020 . FINDINGS: Right kidney: There is normal contour and echogenicity. It measures 11.3 x 4.0 x 4.5 centimeters. T here are no focal renal lesions identified. There is no hydronephrosis. Left kidney: There is normal contour and echogenicity. It measures 10.1 x 4.9 x 4.7 centimeters. Th ere are no focal renal lesions identified. There is no hydronephrosis. Bladder unremarkable. IMPRESSION: 1. Sonographically unremarkable kidneys. Reviewed, dictated and finalized at location B. R PACKING EXAMINER
== END ==
PROVIDERS: Visit Provider Internal Medicine Endocrinology, Diabetes & Metabolism
DX: R80.9 Proteinuria, unspecified (principal)
CPT/HCPCS: 76775

== ENCOUNTER 2022-08-11 15:39 | Outpatient (CLI) | payer OTHER, SELFPAY ==
--- NOTE | ~2022-08-11 | US_ITS ---
EXAMINATION: US transvaginal DATE: 08/11/2022 16:17 INDICATION: Unspecified menopausal and perimenopausal disorder. TECHNIQUE: Multiple transvaginal sonographic images of the pelvis were obtained. COMPARISON: None. FINDINGS: The uterus measures 6.9 x 4.4 x 4.8 cm. There is no free fluid in the pelvis. The endometrial complex measures 7 mm in thickness. There is an intrauterine device in expected position. The right ovary me asures 2.8 x 1.6 x 1.8 cm. The left ovary measures 2.8 x 1.8 x 2.0 cm. There is normal vascular flow in the ovaries. IMPRESSION: 1. Intrauterine device in expected position. Reviewed, dictated and finalized at location A. ASSEMBLER
== END 2022-08-11 15:40 ==
PROVIDERS: PCP Family Medicine; Visit Provider Internal Medicine Endocrinology, Diabetes & Metabolism
DX: N95.9 Unspecified menopausal and perimenopausal disorder (principal); Z97.5 Presence of (intrauterine) contraceptive device
CPT/HCPCS: 76830

== ENCOUNTER 2022-12-17 13:32 | Outpatient (CLI) | payer OTHER, SELFPAY ==
--- NOTE | 2022-12-17 | ECHO_ITS ---
Patient Info Name: Roxy Mattson Meng Age: 52 years : 1970 Gender: Female Ht: 67 in Wt: 155 lbs BSA: 1.83 m2 HR: 84 bpm BP: 95 / 75 mmHg Technical Quality: Good Exam Date: 12/17/2022 1:48 PM Exam Location: [facility] Patient Status: Outpatient Admit Date: 12/17/2022 Staff Ordering Physician: Rell, Kranthi Msihra DO Biomedical Equipment Tech: Jyotsna Feliz RDCS Attending Provider: Jada, Kranthi Mishra DO Referring Physician: Rell SWAIN; Exam Type: CA echo doppler color flow Study Info Indications R42 - Dizziness and giddiness I10 - Essential (primary) hypertension N18.1 - Chronic kidney disease, stage 1 Complete two-dimensional, color flow and Doppler transthoracic echocardiogram is performed. Summary 1. Complete two-dimensional, color flow and Doppler transthoracic echocardiogram is performed. 2. Left ventricular chamber dimension is normal. 3. Left ventricular systolic function is normal, estimated at 60-65%. 4. The left ventricular diastolic function is grade I diastolic dysfunction. 5. E/e' 7 is not elevated. 6. Global longitudinal strain is normal at -17.3%. 7. Left atrial chamber dimension is mildly enlarged. 8. There is trace mitral valve regurgitation. 9. No pulmonary hypertension, estimated pulmonary arterial systolic pressure is 32 mmHg. Left Ventricle E/e' 7 is not elevated. Global longitudinal strain is normal at -17.3%. Left ventricular chamber dimension is normal. Left ventricular systolic function is normal, estimated at 60-65%. The left ventricular diastolic function is grade I diastolic dysfunction. Right Ventricle Right ventricular systolic function is normal and with normal TAPSE 2.4 cm. Right ventricular chamber dimension is normal. Left Atria Left atrial chamber dimension is mildly enlarged. Right Atria Right atrial chamber dimension is normal. Aortic Valve The aortic valve is trileaflet. There is no aortic valve stenosis. There is no aortic valve regurgitation. Pulmonic Valve There is no pulmonic regurgitation. Mitral Valve There is no mitral valve stenosis. There is trace mitral valve regurgitation. Tricuspid Valve There is no tricuspid valve regurgitation. No pulmonary hypertension, estimated pulmonary arterial systolic pressure is 32 mmHg. Pericardium/Pleural There is no pericardial effusion. Inferior Vena Cava Normal inferior vena cava with >50% collapse upon inspiration consistent with normal right atrial pressure, 5 mmHg. Aorta The aortic root size at the sinus of Valsalva is normal. Left Ventricular Outflow Tract Name Value Normal LVOT 2D LVOT Diameter 2.0 cm LVOT Doppler LVOT Peak Gradient 6 mmHg LVOT Mean Gradient 3 mmHg LVOT VTI 24 cm LVOT VTI/AV VTI Ratio 1.0 LVOT Stroke Volume 77 ml LVOT CO 5.6 l/min LVOT CI 3.1 l/min/m2 Pulmonic Valve Name Value Normal
== END 2022-12-17 13:33 | disposition home or self-care (01) ==
LOC: ANHCARD 13:33
PROVIDERS: PCP Family Medicine; Visit Provider Internal Medicine Nephrology
DX: R93.1 Abnormal findings on diagnostic imaging of heart and coronary circulation (principal); R42 Dizziness and giddiness; I12.9 Hypertensive chronic kidney disease with stage 1 through stage 4 chronic kidney disease, or unspecified chronic kidney disease; N18.1 Chronic kidney disease, stage 1
CPT/HCPCS: 93306

== ENCOUNTER 2023-04-11 12:59 | Outpatient (CLI) | payer OTHER, SELFPAY ==
--- NOTE | ~2023-04-11 | XR_ITS ---
Clinical Indication: Dyspnea PA and lateral views of the chest: Comparison: 10/09/2009 Findings: The lungs are clear, without evidence of focal consolidation or pleural effusion. Cardiome diastinal silhouette is within normal limits. Bones and soft tissues are unremarkable. Impression: Normal chest. Reviewed, dictated and finalized at [facility]. Impression: Normal chest.
--- NOTE | ~2023-04-11 | XR_ITS ---
MODIFIED ESOPHAGRAM HISTORY: Dysphagia. TECHNIQUE: Modified barium esophagram was performed on 04/11/2023. I administered fluoroscopy and per formed the exam with speech pathologist. Patient was seated for lateral fluoroscopic imaging for ing estion of thin liquids, pudding, solids and quantified amounts, followed by thin liquids in uncontrol led amounts. This was recorded on tape. A single fluoroscopic spot image was also recorded. The DAP f or this procedure was 0.406 Gycm2. The amount of fluoroscopy time used during this procedure was 0.7 minutes. FINDINGS: Oral stage: Adequate function. Pharyngeal stage: Adequate function. Cervical/esophageal stage: Adequate function. IMPRESSION: Patient tolerated regular consistency oral feedings in the upright position. Please jennifer elate with speech pathologist findings and specific feeding recommendations. Reviewed, dictated and finalized at location A. IMPRESSION: Patient tolerated regular consistency oral feedings in the upright position. Please correlate with speech pathologist findings and specific feedi ng recommendations.
--- NOTE | 2023-04-12 10:23 | REHSTMBS ---
Assessment and note entered by Kirsten Ludwig, STEEL BARREL REAMER Modified Barium Swallow Evaluation Feeding Type Recommended Oral Food Consistency Regular, Level 7 Liquid Consistency Thin (0) ST Clinical Summary MODIFIED BARIUM SWALLOW STUDY This patient was seen for an outpatient Modified Barium Swallow study at the request of her physician. She reports that she began feeling that something was still in her throat after eating nuts, specifically, but then began to have a feeling that something is always there even when she is not consuming foods or liquids. This Modified Barium Swallow study was administered to assess her risk for aspiration into the airway that may be contributing to her sensation or if she was pocketing/pooling items in the base of the pharynx after swallowing. Patient was viewed in the lateral position to the level of C5/C6. Patient was presented with uncontrolled thin liquid contrast medium both per cup and per straw, pudding mixed with semi-solid contrast medium, and then fruit pieces in syrup and blair cracker pieces coated with the semi- solid mixture. Patient exhibited quick swallows with adequate clearing of the pharyngeal cavity and no evidence of penetration/aspiration. There was no significant residue remaining in the pharynx or upper esophagus at the completion of each swallow and at the completion of the assessment. Results indicate this patient's swallowing skills are within normal limits. She may remain on a Regular Diet and Regular Liquids with no specific instructions. She did admit to being diagnosed with gastroesophageal reflux disease (GERD) and being placed on Pantoprazole; sometimes GERD sensations can contribute to a feeling that something is in the throat when nothing is found. She is referred back to her physician for further assessment of her complaint.
--- NOTE | 2023-04-12 10:41 | REHSTMBS ---
Assessment and note entered by Kirsten Ludwig, [employer] Modified Barium Swallow Evaluation Feeding Type Recommended Oral Food Consistency Regular, Level 7 Liquid Consistency Thin (0) ST Clinical Summary MODIFIED BARIUM SWALLOW STUDY This patient was seen for an outpatient Modified Barium Swallow study at the request of her physician. She reports that she began feeling that something was still in her throat after eating nuts, specifically, but then began to have a feeling that something is always there even when she is not consuming foods or liquids. This Modified Barium Swallow study was administered to assess her risk for aspiration into the airway that may be contributing to her sensation or if she was pocketing/pooling items in the base of the pharynx after swallowing. Patient was viewed in the lateral position to the level of C5/C6. Patient was presented with uncontrolled thin liquid contrast medium both per cup and per straw, pudding mixed with semi-solid contrast medium, and then fruit pieces in syrup and blair cracker pieces coated with the semi- solid mixture. Patient exhibited quick swallows with adequate clearing of the pharyngeal cavity and no evidence of penetration/aspiration. There was no significant residue remaining in the pharynx or upper esophagus at the completion of each swallow and at the completion of the assessment. Results indicate this patient's swallowing skills are within normal limits. She may remain on a Regular Diet and Regular Liquids with no specific instructions. She did admit to being diagnosed with gastroesophageal reflux disease (GERD) and being placed on Pantoprazole; sometimes GERD sensations can contribute to a feeling that something is in the throat when nothing is found . She is referred back to her physician for further assessment of her complaint.
== END 2023-04-11 13:00 | disposition home or self-care (01) ==
PROVIDERS: PCP Family Medicine; Visit Provider Otolaryngology
DX: R06.00 Dyspnea, unspecified (principal); R13.10 Dysphagia, unspecified
CPT/HCPCS: 71046; 92611

== ENCOUNTER 2023-04-26 10:01 | Outpatient (CLI) | payer OTHER, SELFPAY ==
--- NOTE | 2023-04-26 17:13 | WPDPFTINT ---
PFT Procedure Performed PFT Procedure Performed Spirometry with Pre/Post Bronchodilator Plethysmography (Lung Vol) Diffusing Cap (DLCO) Flow Vol Loop PFT Interpretation This is a pulmonary function test with pre and post-bronchodilator spirometry, plethysmography and diffusing capacity. The test was performed and results interpreted in accordance with the 2019 and 2005 ATS/ERS Task Force guidelines respectively using the Global Lung Function Initiative-2012 reference equations. Patient demonstrated good effort and cooperation. Reproducibility criteria were met. The quality of the pre bronchodilator spirometry maneuver was Grade A and post bronchodilator spirometry maneuver was Grade A. Findings: Spirometry: There is decreased maximal expiratory airflow at low lung volumes with concave expiratory flow tracing. The contour the inspiratory flow tracing is normal. The pre bronchodilator FVC is 4.18 L, 109% predicted. The pre bronchodilator FEV1 is 2.81 L, 92% predicted. The pre bronchodilator FEV1: FVC ratio 67%. The post bronchodilator FVC is 4.28 L, representing a 2% increase. The post bronchodilator FEV1 is 3.04 L, representing an 8% increase. The post bronchodilator FEV1: FVC ratio 71%. Plethysmography: The total lung capacity is 6.24 L, 114% predicted. The functional residual capacity is 3.58 L, 116% predicted. The residual volume is 2.06 L, 106% predicted. Diffusion capacity: The diffusing capacity unadjusted for hemoglobin and carboxyhemoglobin is 18.8, 79% predicted. The diffusing capacity adjusted for alveolar volume is 3.66, 82% predicted. Impression: There is a mild obstructive abnormality with a normal FEV1 and without significant improvement after inhaling a single dose of albuterol. The lung volumes are normal. The diffusing capacity is normal. There are no prior studies for comparison
== END 2023-04-26 10:02 | disposition home or self-care (01) ==
PROVIDERS: PCP Family Medicine; Visit Provider Physician Assistant
DX: R06.00 Dyspnea, unspecified (principal); R94.2 Abnormal results of pulmonary function studies
CPT/HCPCS: 94060; 94726; 94729

== ENCOUNTER 2024-05-06 16:54 | Emergency (ER) | payer OTHER, SELFPAY ==
--- NOTE | ~2024-05-06 | XR_ITS ---
EXAM: XR shoulder RT min 2V DATE: 05/06/2024 17:20 HISTORY: R SHOULDER INJURY . COMPARISON: None available. FINDINGS: Normal mineralization. No fracture or dislocation. No lytic or blastic lesion. Mild degene rative change at the AC joint and glenohumeral joint. No erosion or periosteal change. Soft tissues w ithin normal limits. IMPRESSION: No acute osseous finding in the right shoulder. Reviewed, dictated and finalized at location [facility]. [facility]
[2024-05-06 16:55] VITALS: BP 152/74; PULSE 75; RESP 16; TEMP 36.5; O2SAT 100
[2024-05-06 20:42] VITALS: BP 117/83; PULSE 43; RESP 18; O2SAT 97
--- NOTE | 2024-05-06 20:50 | ED.UPPEXIN ---
HPI - Extremity Injury (Upper) General Chief Complaint: Extremity Injury, Upper Stated Complaint: R SHOULDER INJURY Time Seen by Provider: 05/06/24 20:28 Source: patient Mode of arrival: ambulatory Limitations: no limitations History of Present Illness HPI narrative: this is a 54-year-old female that presents to the emergency department after a right shoulder injury today. Reports she was falling and her arm hyperextended. Reports pain and decreased range of motion in the shoulder. Denies numbness. Related Data Home Medications Medication Instructions Recorded Confirmed ponesimod 20 mg tablet (Ponvory) 20 mg PO DAILY 12/02/22 02/28/24 spironolactone 25 mg tablet 25 mg PO DAILY 12/02/22 02/28/24 (Aldactone) Allergies Allergy/AdvReac Type Severity Reaction Status Date / Time Cephalosporins Allergy Severe hives Verified 02/28/24 11:14 guaifenesin Allergy Severe Hives / Verified 02/28/24 11:14 Red Face cephalexin Allergy Unknown hives Verified 02/28/24 11:14 Penicillins Allergy Unknown hives Verified 02/28/24 11:14 Sulfa (Sulfonamide Allergy Unknown hives and Verified 02/28/24 11:14 Antibiotics) hallucinations ciprofloxacin AdvReac Mild Rash Verified 02/28/24 11:14 vancomycin AdvReac Mild Rash Verified 02/28/24 11:14 lidocaine AdvReac Unknown light Verified 02/28/24 11:14 headed Review of Systems Review of Systems: CONSTITUTIONAL: Denies fever MUSCULOSKELETAL: Reports joint pain, and myalgia. NEUROLOGIC: Denies numbness All systems reviewed & are unremarkable except as noted in HPI and below PMFSH Past Medical History Medical History Acute bronchitis Acute non-recurrent maxillary sinusitis Acute pain of right wrist Asthma Colitis Dehydration, mild Dysfunctional gallbladder History of PCOS Laryngitis, acute Left lower quadrant pain Low back pain MDD (major depressive disorder), recurrent episode, moderate Nervous indigestion Pain of right heel Panic disorder Proteinuria Psychophysiological insomnia Right tennis elbow Surgical History Surgical History History of laparoscopy Family History Family History Mother Patient's mother is in good health Father Patient's father is in good health Sibling Patient's sister is in good health Patient's brother is in good health Social History Social History Social History: Smoking packs per day: 1 Smoking cigarettes per day: 20.0 Years smoked: 2 Smoking pack-years: 2.00 Smoking status: Former smoker Tobacco type: cigarettes Second hand tobacco smoke exposure: No Smoking end date: 06/27/91 Alcohol intake: former Alcohol use details: None this year due to not feeling well. Substance use: never Substance use type: does not use Lack of Transportation: No Lack of Food: Never True Current Housing: I Have Housing Concerned About Future Housing: No Difficulty Paying Gas/Electric Bills: No Difficulty Paying for Meds: No Currently Unemployed: No Education: Bachelor's Degree Difficulty w/ Childcare or Family Care: No Living arrangements: with family Occupation/Education: occupation Gender identity (if verbalized by the patient): Female Sexual Orientation (if Verbalized by the Patient): Straight or Heterosexual Spiritual care concerns: No Exam Narrative: GENERAL: Well-appearing, well-nourished, and in no acute distress. HEAD: Normocephalic, atraumatic. EYES: EOMI. CHEST: Clear to auscultation. No respiratory distress. No wheezes rales or rhonchi HEART: Regular rate and rhythm. No murmur heard. Normal peripheral pulses. EXTREMITIES: Decreased active range of motion in the right shoulder due to pain. No edema or obvious deformity. Normal radial pulse. Normal sensation SKIN: Warm, dry, no rash. NEURO: No focal deficits. Alert and oriented x3. PSYCH: Normal mood and affect Course Course Emergency Course: patient updated on workup and agrees with plan of care Vital Signs Vital signs: Vital Signs Temperature 97.7 F 05/06/24 16:55 Pulse Rate 75 05/06/24 16:55 Respiratory Rate 16 05/06/24 16:55 Blood Pressure 152/74 H 05/06/24 16:55 Pulse Oximetry 100 05/06/24 16:55 Oxygen Delivery Room Air 05/06/24 16:55 Temperature 97.7 F 05/06/24 16:55 Pulse Rate 43 L 05/06/24 20:42 Respiratory Rate 18 05/06/24 20:42 Blood Pressure 117/83 05/06/24 20:42 Pulse Oximetry 97 05/06/24 20:42 Oxygen Delivery Room Air 05/06/24 16:55 MDM - Extremity Injury (Upper) MDM Narrative Medical decision making narrative: patient presents to the emergency department for right shoulder pain after an injury today. Patient is neurovascularly intact. Right shoulder x-ray without acute osseous abnormalities. Patient placed in sling for comfort. She is to follow up with primary provider. She was given warnings to return to the ER Differential Diagnosis Differential diagnosis: Likely dislocation of shoulder and other (shoulder sprain) Imaging Data Radiologist's impression: ITS Impressions Shoulder X-Ray 05/06/24 18:11 IMPRESSION: No acute osseous finding in the right shoulder. Critical Care Time Critical Care Time Critical Care Time: No Discharge Plan Discharge Clinical Impression: Sprain of right shoulder Qualifiers: Encounter type: initial encounter Shoulder sprain type: unspecified sprain Qualified Code(s): S43.401A - Unspecified sprain of right shoulder joint, initial encounter Patient Disposition: Home, Self-Care Condition: Stable Instructions: Shoulder Sprain (ED) Additional Instructions: Return to the ER if you experience fever, redness and swelling of your extremity, numbness or any other symptoms that are concerning to you Wear sling. No weight on the affected extremity. Ice. Pain medication as needed and directed. Follow up with your doctor for further care. Prescriptions: No Action Ponvory 20 mg tablet 20 mg PO DAILY spironolactone [Aldactone] 25 mg tablet 25 mg PO DAILY fluticasone propionate 50 mcg/actuation spray,suspension 1 spray intranasal DAILY Qty: 16 0RF Rx Instructions: administer into each nostril cyclobenzaprine 5 mg tablet 5 mg PO TID PRN (Reason: muscle spasm) Qty: 60 0RF albuterol sulfate 90 mcg/actuation HFA aerosol inhaler See Rx Instructions .ROUTE .COMPLEX Qty: 6.7 0RF Dose Instruction: TAKE 1 INHALATION EVERY 4 HOURS NEEDED FOR SHORTNESS OF BREATH Rx Instructions: TAKE 1 INHALATION EVERY 4 HOURS NEEDED FOR SHORTNESS OF BREATH azelastine 137 mcg (0.1 %) aerosol,spray See Rx Instructions .ROUTE .COMPLEX Qty: 30 0RF Dose Instruction: USE 137 MCG (0.137 ML) INTRANASALLY EVERY 12 HOURS ADMINISTER INTO EACH NOSTRIL Rx Instructions: USE 137 MCG (0.137 ML) INTRANASALLY EVERY 12 HOURS ADMINISTER INTO EACH NOSTRIL quetiapine 25 mg tablet See Rx Instructions .ROUTE .COMPLEX Qty: 180 0RF Dose Instruction: TAKE 1 TABLET BY MOUTH TWICE A DAY Rx Instructions: TAKE 1 TABLET BY MOUTH TWICE A DAY Follow-up/Referrals: Michelle Mcqueen MD [Primary Care Provider] -
[2024-05-06] MEDS: KETOROLAC 30 MG/ML VIAL (*BKC) IM (21:18)
[2024-05-06] MEDS: ACETAMINOPHEN 500 MG TABLET 1000 MG PO (21:18)
== END 2024-05-06 21:29 | disposition home or self-care (01) ==
PROVIDERS: Emergency Provider Physician Assistant; PCP Family Medicine
DX: S43.401A Unspecified sprain of right shoulder joint, initial encounter (principal); J45.909 Unspecified asthma, uncomplicated; E28.2 Polycystic ovarian syndrome; F33.9 Major depressive disorder, recurrent, unspecified; Z87.891 Personal history of nicotine dependence; Z79.899 Other long term (current) drug therapy; W19.XXXA Unspecified fall, initial encounter
CPT/HCPCS: 73030; 96372; 99283; A4565; A9270; J1885